=== PATIENT | male | born 1995 | race Caucasian/White ===

== ENCOUNTER 2017-09-26 23:06 | Emergency (ER) | payer OTHER ==
[~2017-09-26] VITALS: Ht 172.7 cm; Wt 63.6 kg
[2017-09-27 00:28] LABS: HEMATOCRIT 38.2 % (38.0-50.0); HEMOGLOBIN 13.1 G/DL (12.5-16.6); MCH 30.5 PG (29.0-34.0); MCHC 34.3 G/DL (30.0-36.0); PLATELET COUNT 266 K/uL (156-360); RBC DIS.WIDTH-CV 12.4 % (11.8-14.6); RBC DIS.WIDTH-SD 40.6 % (39-53); RED BLOOD COUNT 4.29 M/uL (4.00-5.50); WHITE BLOOD COUNT 8.9 K/uL (4.1-10.2)
[2017-09-27 00:36] LABS: ALBUMIN 4.6 g/dL (3.2-4.8); CHLORIDE 107 mEq/L (99-109); POTASSIUM 3.8 mEq/L (3.7-5.4); SODIUM 141 mEq/L (136-147)
[2017-09-27 00:39] LABS: GLUCOSE 89 mg/dL (70-99); TOTAL PROTEIN 7.5 g/dL (6.4-8.3)
[2017-09-27 00:40] LABS: TOTAL BILIRUBIN 0.9 mg/dL (0.0-1.0)
[2017-09-27 00:41] LABS: SERUM ETHYL ALCOHOL < 10 mg/dL
[2017-09-27 00:42] LABS: ALKALINE PHOSPHATASE 112 IU/L (3-129); CREATININE 1.1 mg/dL (0.6-1.3); GFR ESTIMATE (CALCULATED) > 59 mL/min/ (58.99-99999)
[2017-09-27 00:43] LABS: UREA NITROGEN (BUN) 18 mg/dL (9-23)
[2017-09-27 00:44] LABS: AST (GOT) 19 IU/L (2-34)
[2017-09-27 00:45] LABS: ALT (GPT) 11 IU/L (3-49)
[2017-09-27 01:27] LABS: AMPHETAMINE NEGATIVE (500 ng/mL); BARBITURATES NEGATIVE (200 ng/mL); BENZODIAZEPINES NEGATIVE (150 ng/mL); BUPRENORPHINE PRESUMPTIVE POSITIVE (10 ng/mL); COCAINE PRESUMPTIVE POSITIVE (150 ng/mL); METHADONE NEGATIVE (200 ng/mL); METHAMPHETAMINE NEGATIVE (500 ng/mL); OPIATES (MORPHINE) PRESUMPTIVE POSITIVE (100 ng/mL); OXYCODONE NEGATIVE (100 ng/mL); PHENCYCLIDINE NEGATIVE (25 ng/mL); PROPOXYPHENE NEGATIVE (300 ng/mL); THC CANNABINOIDS PRESUMPTIVE POSITIVE (50 ng/mL); TRICYCLIC ANTIDEPRESSANTS NEGATIVE (300 ng/mL)
[2017-09-27 14:08] VITALS: BP 118/61
== END 2017-09-27 14:08 | disposition home or self-care (01) ==
LOC: EME 23:06
PROVIDERS: Emergency Medicine
DX: F32.9 Major depressive disorder, single episode, unspecified (principal); R45.851 Suicidal ideations; S00.81XA Abrasion of other part of head, initial encounter; X79.XXXA Intentional self-harm by blunt object, initial encounter; F14.10 Cocaine abuse, uncomplicated; F12.10 Cannabis abuse, uncomplicated; F41.1 Generalized anxiety disorder; J45.909 Unspecified asthma, uncomplicated; F17.200 Nicotine dependence, unspecified, uncomplicated
CPT/HCPCS: 80053; 84999; 85027; 90837; 99281; 99285; G0480

== ENCOUNTER 2017-09-30 17:16 | Inpatient (IN) | payer OTHER ==
[~2017-09-30] VITALS: Ht 172.7 cm; Wt 64.8 kg
[2017-09-30 18:03] LABS: HEMATOCRIT 36.6 % (38.0-50.0); HEMOGLOBIN 12.8 G/DL (12.5-16.6); MCH 31.1 PG (29.0-34.0); MCV 88.8 FL (86-99); PLATELET COUNT 221 K/uL (156-360); RBC DIS.WIDTH-CV 11.9 % (11.8-14.6); RBC DIS.WIDTH-SD 38.5 % (39-53); RED BLOOD COUNT 4.12 M/uL (4.00-5.50); WHITE BLOOD COUNT 6.7 K/uL (4.1-10.2)
[2017-09-30 18:14] LABS: ALBUMIN 4.3 g/dL (3.2-4.8); CHLORIDE 105 mEq/L (99-109); POTASSIUM 3.8 mEq/L (3.7-5.4); SODIUM 138 mEq/L (136-147)
[2017-09-30 18:16] LABS: GLUCOSE 108 mg/dL (70-99)
[2017-09-30 18:17] LABS: TOTAL PROTEIN 6.8 g/dL (6.4-8.3)
[2017-09-30 18:19] LABS: SERUM ETHYL ALCOHOL < 10 mg/dL
[2017-09-30 18:20] LABS: ALKALINE PHOSPHATASE 102 IU/L (3-129); CREATININE 1.3 mg/dL (0.6-1.3); GFR ESTIMATE (CALCULATED) > 59 mL/min/ (58.99-99999)
[2017-09-30 18:21] LABS: UREA NITROGEN (BUN) 17 mg/dL (9-23)
[2017-09-30 18:22] LABS: AST (GOT) 19 IU/L (2-34)
[2017-09-30 18:23] LABS: ALT (GPT) 9 IU/L (3-49)
[2017-09-30 18:24] LABS: TOTAL BILIRUBIN 1.2 mg/dL (0.0-1.0)
[2017-09-30 19:09] LABS: APPEARANCE SL.HAZY ((CLEAR)); BILIRUBIN NEGATIVE; BLOOD NEGATIVE; COLOR YELLOW ((YELLOW)); GLUCOSE (STRIP) NEGATIVE; KETONES 5; LEUKOCYTES NEGATIVE; NITRITE NEGATIVE; PROTEIN (STRIP) 30; SPECIFIC GRAVITY 1.031 (1.000-1.030)
[2017-09-30 19:19] LABS: BACTERIA RARE /HPF; EPITHELIAL CELLS RARE /HPF; MUCUS 3+ /LPF; RED BLOOD CELLS 0-5 /HPF (0-5); UCUL ADDED? NO; WHITE BLOOD CELLS 0-5 /HPF (0-5)
[2017-09-30 19:22] LABS: AMPHETAMINE NEGATIVE (500 ng/mL); BARBITURATES NEGATIVE (200 ng/mL); BENZODIAZEPINES NEGATIVE (150 ng/mL); BUPRENORPHINE NEGATIVE (10 ng/mL); COCAINE NEGATIVE (150 ng/mL); METHADONE NEGATIVE (200 ng/mL); METHAMPHETAMINE NEGATIVE (500 ng/mL); OPIATES (MORPHINE) NEGATIVE (100 ng/mL); OXYCODONE NEGATIVE (100 ng/mL); PHENCYCLIDINE NEGATIVE (25 ng/mL); PROPOXYPHENE NEGATIVE (300 ng/mL); THC CANNABINOIDS NEGATIVE (50 ng/mL); TRICYCLIC ANTIDEPRESSANTS NEGATIVE (300 ng/mL)
[2017-09-30 22:32] VITALS: BP 131/69
[2017-10-01 07:51] VITALS: BP 105/56
[2017-10-01 16:05] VITALS: BP 135/70
[2017-10-02 08:18] VITALS: BP 101/64
== END 2017-10-02 08:55 | disposition home or self-care (01) | DRG 897 ==
LOC: EME 17:16 → 1WEST 19:16 → EDOF 19:16 → ENRESERV 22:28 → 1WEST 22:29
PROVIDERS: Emergency Medicine
PROC: HZ2ZZZZ Detoxification Services for Substance Abuse Treatment (ICD-10-PCS; principal; 2017-09-30)
DX: F11.23 Opioid dependence with withdrawal (principal); F12.20 Cannabis dependence, uncomplicated; F14.20 Cocaine dependence, uncomplicated; F41.9 Anxiety disorder, unspecified; F17.200 Nicotine dependence, unspecified, uncomplicated; J45.909 Unspecified asthma, uncomplicated; Z81.8 Family history of other mental and behavioral disorders; Z91.5 Personal history of self-harm; M54.5 Low back pain
CPT/HCPCS: 80053; 81003; 85027; 90839; 99281; 99285; G0480; J0572; Q0169; Q0177